=== PATIENT | male | born 2000 | race Hispanic/Latino ===

== ENCOUNTER 2022-01-23 04:29 | Inpatient (IN) | payer OTHER ==
[2022-01-23 05:07] LABS: INR-International Normal Ratio 1.2; PTT 28.8 sec (22.9-36.1); Prothrombin Time 15.1 sec (12.0-14.7)
[2022-01-23 05:12] LABS: ALT (SGPT) 407 U/L (8-55); AST (SGOT) 658 U/L (5-34); Albumin 4.4 g/dL (3.5-5.0); Alkaline Phosphatase 50 U/L (50-130); Anion Gap 24 mmol/L (10-20); BUN (Urea Nitrogen) 19 mg/dL (8.9-20.6); Bilirubin, Total 0.9 mg/dL (0.2-1.2); Calc. Creatinine Clearance 0 mL/min (70-130); Carbon Dioxide 18 mmol/L (22-29); Chloride 100 mmol/L (98-107); Estimated GFR 44; Globulin 3.1 g/dL (2.4-3.5); Glucose 298 mg/dL (70-105); Protein, Total 7.5 g/dL (6.0-8.3); Sodium 139 mmol/L (136-145)
[2022-01-23 05:23] LABS: Hemoglobin 14.6 g/dL (14.0-18.0); Mean Corpuscular HGB CONC 33.9 g/dL (32.0-36.0); Mean Corpuscular Hemoglobin 30.3 pg (25.0-35.0); Mean Corpuscular Volume 89.7 fL (78.0-98.0); Mean Platelet Volume 6.7 fL (7.4-10.4); Platelet Count 351 thou/uL (130-400); RBC Distribution Width 11.6 % (11.5-14.5); Red Blood Cell (RBC) Count 4.83 mill/uL (4.00-5.20); White Blood Cell (WBC) Count 25.4 thou/uL (4.8-10.8)
[2022-01-23] MEDS ORDERED: Fentanyl 100 MCG/2 ML VIAL ONE (05:32)
[2022-01-23 05:58] LABS: Band 24 % (5-11); Lymphocytes 14 % (28-48); MDiff Complete? YES; Monocytes 3 % (0-4); Neutrophil 59 % (31-61)
[2022-01-23] MEDS ORDERED: Morphine 4 MG/ML VIAL SLOW IVP PRN (05:58)
[2022-01-23] MEDS ORDERED: Dextrose 50% Abboject 50 ML SYRINGE SLOW IVP PRN ×2 (05:58→17:49)
[2022-01-23] MEDS ORDERED: Ondansetron PF 4 MG/2 ML Vial IVP PRN (05:58)
[2022-01-23] MEDS ORDERED: Dextrose 5% in Water 1,000 ML IV PRN (05:58)
[2022-01-23] MEDS ORDERED: Ondansetron ODT 4 MG TAB PO PRN (05:58)
[2022-01-23] MEDS ORDERED: Morphine 2 MG/ML VIAL SLOW IVP PRN (05:58)
[2022-01-23] MEDS ORDERED: Sodium Chloride 0.9% 1,000 ML IV SCH ×2 (06:00→22:30)
[2022-01-23] MEDS ORDERED: CEFAZOLIN 1 GM VIAL ONE (06:12)
[2022-01-23] MEDS ORDERED: Tranexamic Acid 1,000 MG/10 ML VIAL ONE (06:12)
[2022-01-23] MEDS ORDERED: Boostrix 0.5 ML (Tdap) VIAL ONE (06:12)
[2022-01-23] MEDS ORDERED: Ketamine 50 MG/ML (10ML VIAL) ONE (06:12)
[2022-01-23] MEDS ORDERED: Lidocaine 1% PF 5 ML VIAL ONE (06:19)
[2022-01-23 06:30] LABS: Bacteria/HPF None Seen HPF (None Seen); Bilirubin Negative (Negative); Blood, Urine 3+ (Negative); Clarity Turbid (Clear); Glucose, Urine (Dipstick) Normal (Negative); Ketone, Urine Negative (Negative); Leukocyte Negative Leu/uL (Negative); Nitrite Negative (Negative); Protein, Urine (Dipstick) 30 mg/dL (Neg-Trace); Specific Gravity, Urine 1.004 (1.002-1.036); Squamous Epithelial 0-3 HPF (0-3); Urobilinogen Normal mg/dL (Less than 2); pH, Urine 6.5 (5.0-9.0)
[2022-01-23] MEDS ORDERED: Ondansetron PF 4 MG/2 ML Vial ONE (06:55)
[2022-01-23] MEDS ORDERED: Calcium Chloride 1 GM/10 ML Abboject SYRINGE ONE ×2 (07:13→08:02)
[2022-01-23] MEDS ORDERED: Rocuronium Bromide 10 MG/ML (10ML VIAL) ONE ×3 (07:27→10:20)
[2022-01-23 07:43] LABS: CK (CPK) 1166 U/L (30-200); Magnesium 2.2 mg/dL (1.7-2.2); Phosphorus 7.5 mg/dL (2.3-4.7)
[2022-01-23] MEDS ORDERED: Midazolam HCl 2 mg/2 ml Vial ONE (07:43)
[2022-01-23] MEDS ORDERED: DISCONTINUE PREVIOUS NARCOTIC PAIN MEDICATIONS AND BENZODIAZEPINES FS SCH ×2 (07:45→08:30)
[2022-01-23] MEDS ORDERED: fentaNYL Citrate/PF 2,000 MCG in Sodium Chloride 0.9% 60 ML IV SCH ×2 (07:45→08:30)
[2022-01-23 07:56] LABS: Troponin I 0.919 ng/mL (< 0.028)
[2022-01-23 07:59] LABS: Actual Bicarbonate (HCO3a) 17.1 mEq/L (22-28); Analyzer IN Cardio ER; Base Excess (BEa) -7.9 mEq/L (-2.0 to +3.0); CO2 Tension 33.5 mmHg (35.0-45.0); Calcium, Ionized (arterial) 0.94 mmol/L (1.12-1.30); Carboxyhemoglobin (COHb) 0.3 gm% (0.0-3.0); Hemoglobin (Hb) 13.1 g/dL (11.4-15.4); O2 Tension (PaO2), arterial 420.9 mmHg (80.0-100.0); Potassium - ABG Lab 4.06 mmol/L (3.70-5.30); pH, Arterial 7.33 (7.35-7.45)
[2022-01-23] MEDS ORDERED: Ventilator Sedation Protocol 1 EACH FS SCH (08:00)
[2022-01-23 08:02] LABS: Puncture Site LBA
[2022-01-23 08:03] LABS: ALV-art Gradient -106.275 mmHg (0-20)
[2022-01-23] MEDS ORDERED: Potassium Chloride 20 MEQ/100 ML PREMIX BAG ONE (08:08)
[2022-01-23] MEDS ORDERED: Lidocaine 1% (PF) 30 ML VIAL ONE (08:09)
[2022-01-23] MEDS ORDERED: Propofol 1,000 MG/100 ML VIAL IV ONE (08:28)
[2022-01-23] MEDS ORDERED: Fentanyl BOLUS 250 ML IVPB PRN (08:30)
[2022-01-23] MEDS ORDERED: fentaNYL Citrate/PF 100 MCG/2 ML SYRINGE ONE ×2 (08:31→10:36)
[2022-01-23] MEDS ORDERED: Tranexamic Acid 1,000 MG in Sodium Chloride 0.9% 250 ML 250 ML IVPB SCH (09:00)
[2022-01-23] MEDS ORDERED: Phenylephrine 10 MG/ML VIAL ONE ×2 (09:01→10:20)
[2022-01-23 09:07] LABS: Amphetamine Not Detected (NotDetected); Barbiturates Screen Not Detected (NotDetected); Benzodiazepine Screen Not Detected (NotDetected); Cocaine Metabolite Screen Not Detected (NotDetected); Methadone Not Detected (NotDetected); Methamphetamine Not Detected (NotDetected); Opiate Screen Not Detected (NotDetected); Oxycodone Screen Not Detected (NotDetected); Phencyclidine (PCP) Not Detected (NotDetected); THC/Cannabinoid Screen Detected (NotDetected); Tricyclic Screen Not Detected (NotDetected)
[2022-01-23 09:24] LABS: Acetaminophen Less than 10.0 mcg/mL (10.0-30.0); Alcohol Less than 10 mg/dL (Less than 10); Salicylate Less than 8.0 mg/dL (15.0-30.0)
[2022-01-23] MEDS ORDERED: Esmolol 100 MG/10 ML VIAL ONE (10:20)
[2022-01-23] MEDS ORDERED: Vecuronium 10 MG VIAL ONE (10:20)
[2022-01-23] MEDS: Famotidine/PF 20 mg/2ml Vial SLOW IVP SCH ×2 (10:36→21:11)
[2022-01-23] MEDS ORDERED: HYDROmorphone 2 MG/ML VIAL ONE (11:18)
[2022-01-23] MEDS ORDERED: Iopamidol 370 76% 100 ML VIAL ONE ×2 (12:20→16:05)
[2022-01-23 15:07] LABS: Actual Bicarbonate (HCO3a) 20.6 mEq/L (22-28); Base Excess (BEa) -5.3 mEq/L (-2.0 to +3.0); Calcium, Ionized (arterial) 1.12 mmol/L (1.12-1.30); Hemoglobin (Hb) 11.5 g/dL (11.4-15.4); O2 Tension (PaO2), arterial 77.5 mmHg (80.0-100.0); Potassium - ABG Lab 6.24 mmol/L (3.70-5.30); pH, Arterial 7.31 (7.35-7.45)
[2022-01-23 15:09] LABS: Puncture Site RBA
[2022-01-23] MEDS: Propofol 1,000 MG/100 ML VIAL IV PRN ×2 (15:10→22:21)
[2022-01-23] MEDS ORDERED: Fentanyl CADD 100 ML ONE (15:25)
[2022-01-23 15:41] LABS: Lactic Acid 4.5 mmol/L (0.5-2.2)
[2022-01-23] MEDS ORDERED: Iopamidol 370 76% 50 ML VIAL FS ONE (16:05)
[2022-01-23 16:13] LABS: INR-International Normal Ratio 1.2; PTT 29.2 sec (22.9-36.1); Prothrombin Time 15.5 sec (12.0-14.7)
[2022-01-23 16:15] LABS: #Lymphocytes 1.4 thou/uL (1.20-3.40); #Monocytes 0.9 thou/uL (0.11-0.59); #Neutrophils 7.3 thou/uL (1.40-6.50); %Basophils 0.1 % (0.0-1.0); %Eosinophils 0.4 % (0.0-10.0); %Lymphocytes 14.6 % (28.0-48.0); %Monocytes 8.9 % (0.0-4.0); %Neutrophils 76.1 % (31.0-61.0); Hemoglobin 11.8 g/dL (14.0-18.0); Mean Corpuscular HGB CONC 34.5 g/dL (32.0-36.0); Mean Corpuscular Hemoglobin 30.6 pg (25.0-35.0); Mean Corpuscular Volume 88.9 fL (78.0-98.0); Mean Platelet Volume 6.6 fL (7.4-10.4); Platelet Count 202 thou/uL (130-400); RBC Distribution Width 12.3 % (11.5-14.5); Red Blood Cell (RBC) Count 3.86 mill/uL (4.00-5.20); White Blood Cell (WBC) Count 9.6 thou/uL (4.8-10.8)
[2022-01-23] MEDS: Sodium Chloride 0.9% 1,000 ML IV SCH ×3 (16:16→22:41)
[2022-01-23 16:30] LABS: Anion Gap 16 mmol/L (10-20); BUN (Urea Nitrogen) 21 mg/dL (8.9-20.6); Calc. Creatinine Clearance 90 mL/min (70-130); Calcium 8.4 mg/dL (7.8-10.44); Carbon Dioxide 21 mmol/L (22-29); Chloride 107 mmol/L (98-107); Estimated GFR 68; Glucose 125 mg/dL (70-105); Lactic Acid 4.4 mmol/L (0.5-2.2); Magnesium 1.7 mg/dL (1.7-2.2); Phosphorus 4.2 mg/dL (2.3-4.7); Potassium 6.4 mmol/L (3.5-5.1); Sodium 138 mmol/L (136-145); Troponin I 2.165 ng/mL (< 0.028)
[2022-01-23] MEDS ORDERED: Magnesium 2 GM/50 ML(in water) 2 GM in Premix Bag 1 BAG IVPB SCH (16:45)
[2022-01-23] MEDS ORDERED: Insulin Regular 300 UNITS/3 ML VIAL SC PRN (17:54)
[2022-01-23] MEDS ORDERED: Insulin Regular 300 UNITS/3 ML VIAL IVP SCH (18:00)
[2022-01-23] MEDS ORDERED: Calcium Gluconate 4.6 MEQ in Sodium Chloride 0.9% 100 ML IVPB SCH (18:00)
[2022-01-23] MEDS ORDERED: CALCIUM GLUC 1GM/NS 50ML 1 GM in Premix Bag 1 BAG IVPB SCH (18:15)
[2022-01-23] MEDS: Ampicillin/Sulbactam 3 GM in Sodium Chloride 0.9% 100 ML IVPB SCH (21:37)
[2022-01-23] MEDS ORDERED: Chlorhexidine Gluconate 15 ML UDCUP SSP SCH (21:45)
[2022-01-23] MEDS ORDERED: ceFAZolin 2 GM/Dextrose 50 ML 2 GM in Premix Bag 1 BAG IVPB SCH (22:00)
[2022-01-23] MEDS: CEFAZOLIN 2 GM in Sodium Chloride 0.9% 100 ML IVPB SCH (23:00)
[2022-01-23 23:01] LABS: Potassium 4.5 mmol/L (3.5-5.1)
[2022-01-23 23:14] LABS: Critical Call Chem Troponin I RESULT DECREASING; Troponin I 1.403 ng/mL (< 0.028)
[2022-01-24] MEDS ORDERED: Fentanyl CADD 0 ML ONE (03:26)
[2022-01-24] MEDS: Fentanyl CADD 100 ML IV SCH ×2 (03:39→13:36)
[2022-01-24] MEDS: Ampicillin/Sulbactam 3 GM in Sodium Chloride 0.9% 100 ML IVPB SCH ×4 (03:44→21:21)
[2022-01-24] MEDS: Propofol 1,000 MG/100 ML VIAL IV PRN ×2 (03:47→23:03)
[2022-01-24 04:07] LABS: #Lymphocytes 1.1 thou/uL (1.20-3.40); #Monocytes 0.7 thou/uL (0.11-0.59); #Neutrophils 6.7 thou/uL (1.40-6.50); %Basophils 0.1 % (0.0-1.0); %Eosinophils 0.2 % (0.0-10.0); %Lymphocytes 12.4 % (28.0-48.0); %Neutrophils 79.2 % (31.0-61.0); Hemoglobin 9.9 g/dL (14.0-18.0); Mean Corpuscular HGB CONC 35.4 g/dL (32.0-36.0); Mean Corpuscular Hemoglobin 31.4 pg (25.0-35.0); Mean Corpuscular Volume 88.5 fL (78.0-98.0); Mean Platelet Volume 6.3 fL (7.4-10.4); Platelet Count 136 thou/uL (130-400); RBC Distribution Width 12.3 % (11.5-14.5); Red Blood Cell (RBC) Count 3.15 mill/uL (4.00-5.20); White Blood Cell (WBC) Count 8.5 thou/uL (4.8-10.8)
[2022-01-24 04:42] LABS: Critical Call Chem Troponin I RESULT DECREASING; Troponin I 1.038 ng/mL (< 0.028)
[2022-01-24 04:56] LABS: CK (CPK) 9440 U/L (30-200)
[2022-01-24 04:59] LABS: ALT (SGPT) 124 U/L (8-55); AST (SGOT) 233 U/L (5-34); Alkaline Phosphatase 41 U/L (50-130); Anion Gap 12 mmol/L (10-20); BUN (Urea Nitrogen) 20 mg/dL (8.9-20.6); Bilirubin, Total 0.8 mg/dL (0.2-1.2); Calc. Creatinine Clearance 109 mL/min (70-130); Calcium 7.9 mg/dL (7.8-10.44); Carbon Dioxide 22 mmol/L (22-29); Chloride 109 mmol/L (98-107); Estimated GFR 85; Globulin 2.2 g/dL (2.4-3.5); Glucose 119 mg/dL (70-105); Magnesium 1.9 mg/dL (1.7-2.2); Phosphorus 3.2 mg/dL (2.3-4.7); Potassium 5.1 mmol/L (3.5-5.1); Protein, Total 5.2 g/dL (6.0-8.3); Sodium 138 mmol/L (136-145)
[2022-01-24] MEDS: CEFAZOLIN 2 GM in Sodium Chloride 0.9% 100 ML IVPB SCH (06:09)
[2022-01-24] MEDS: Sodium Chloride 0.9% 1,000 ML IV SCH ×3 (06:16→21:34)
[2022-01-24 07:15] LABS: SARS-CoV-2 NAA Rapid Test Not Detected (NotDetected)
[2022-01-24 07:18] LABS: Actual Bicarbonate (HCO3a) 20.1 mEq/L (22-28); Base Excess (BEa) -3.7 mEq/L (-2.0 to +3.0); CO2 Tension 31.8 mmHg (35.0-45.0); Calcium, Ionized (arterial) 1.04 mmol/L (1.12-1.30); Carboxyhemoglobin (COHb) 0.3 gm% (0.0-3.0); Hemoglobin (Hb) 10.7 g/dL (11.4-15.4); O2 Tension (PaO2), arterial 177.2 mmHg (80.0-100.0); Potassium - ABG Lab 4.09 mmol/L (3.70-5.30); pH, Arterial 7.42 (7.35-7.45)
[2022-01-24] MEDS ORDERED: Sodium Phosphate 15 MMOL in Sodium Chloride 0.9% 250 ML 250 ML IVPB SCH (07:30)
[2022-01-24] MEDS ORDERED: Midazolam HCl 2 mg/2 ml Vial SLOW IVP PRN (07:33)
[2022-01-24] MEDS ORDERED: Midazolam HCl 5 mg/5 ml Vial SLOW IVP PRN (07:33)
[2022-01-24] MEDS ORDERED: Fentanyl 100 MCG/2 ML VIAL SLOW IVP PRN ×2 (07:34)
[2022-01-24] MEDS: Propofol BOLUS 1,000 MG/100 ML VIAL IV PRN ×3 (07:44→13:36)
[2022-01-24] MEDS ORDERED: Vecuronium 10 MG VIAL IVP SCH (07:45)
[2022-01-24] MEDS ORDERED: Lidocaine 1% w/Epinephrine 1:200K 30 ML VIAL FS SCH (07:45)
[2022-01-24 07:52] LABS: Puncture Site RBA
[2022-01-24] MEDS ORDERED: Calcium Chloride 13.6 MEQ in Sodium Chloride 0.9% 100 ML IVPB SCH (08:15)
[2022-01-24] MEDS: Chlorhexidine Gluconate 15 ML UDCUP SSP SCH ×3 (09:08→21:23)
[2022-01-24] MEDS: Famotidine/PF 20 mg/2ml Vial SLOW IVP SCH ×2 (09:09→21:23)
[2022-01-24] MEDS ORDERED: CEFAZOLIN 2 GM in Sodium Chloride 0.9% 100 ML IVPB SCH (09:45)
[2022-01-24] MEDS ORDERED: Lidocaine 1% w/Epinephrine 1:100K 20 ML VIAL FS SCH (09:45)
[2022-01-24] MEDS: Dexamethasone 4 mg/ml Vial SLOW IVP SCH ×3 (12:33→23:06)
[2022-01-24] MEDS ORDERED: Fentanyl CADD 100 ML ONE (13:35)
[2022-01-24] MEDS ORDERED: Bacitracin Zinc Ointment 30 gm TUBE ONE (17:01)
[2022-01-24] MEDS ORDERED: Xylocaine 1% w/ Epi 1:100K 10 ML VIAL ONE (17:01)
[2022-01-24] MEDS ORDERED: Midazolam HCl 5 mg/5 ml Vial ONE (17:02)
[2022-01-24] MEDS ORDERED: fentaNYL Citrate/PF 100 MCG/2 ML SYRINGE ONE (17:03)
[2022-01-24] MEDS ORDERED: Vecuronium 10 MG VIAL ONE (17:39)
[2022-01-24] MEDS ORDERED: Rocuronium Bromide 10 MG/ML (10ML VIAL) ONE (17:39)
[2022-01-24] MEDS ORDERED: Chlorhexidine Gluconate 15 ML UDCUP SSP ONE (17:48)
[2022-01-24 20:26] LABS: #Lymphocytes 0.4 thou/uL (1.20-3.40); #Monocytes 0.4 thou/uL (0.11-0.59); #Neutrophils 6.9 thou/uL (1.40-6.50); %Eosinophils 0.1 % (0.0-10.0); %Lymphocytes 5.6 % (28.0-48.0); %Neutrophils 89.3 % (31.0-61.0); Hemoglobin 8.6 g/dL (14.0-18.0); Mean Corpuscular HGB CONC 34.1 g/dL (32.0-36.0); Mean Corpuscular Hemoglobin 30.7 pg (25.0-35.0); Mean Corpuscular Volume 90.1 fL (78.0-98.0); Mean Platelet Volume 6.9 fL (7.4-10.4); Platelet Count 123 thou/uL (130-400); RBC Distribution Width 12.4 % (11.5-14.5); White Blood Cell (WBC) Count 7.7 thou/uL (4.8-10.8)
[2022-01-24 20:43] LABS: Anion Gap 11 mmol/L (10-20); BUN (Urea Nitrogen) 14 mg/dL (8.9-20.6); Calc. Creatinine Clearance 131 mL/min (70-130); Calcium 8.3 mg/dL (7.8-10.44); Carbon Dioxide 25 mmol/L (22-29); Chloride 110 mmol/L (98-107); Estimated GFR 103; Glucose 141 mg/dL (70-105); Potassium 4.7 mmol/L (3.5-5.1); Sodium 141 mmol/L (136-145)
[2022-01-24] MEDS ORDERED: hydrALAZINE 20 MG/ML VIAL SLOW IVP PRN (20:45)
[2022-01-24 20:47] LABS: Magnesium 2.1 mg/dL (1.7-2.2)
[2022-01-25] MEDS: Ampicillin/Sulbactam 3 GM in Sodium Chloride 0.9% 100 ML IVPB SCH ×4 (02:14→22:04)
[2022-01-25] MEDS: Propofol 1,000 MG/100 ML VIAL IV PRN ×4 (02:50→13:33)
[2022-01-25] MEDS ORDERED: Fentanyl CADD 100 ML ONE ×2 (03:09→12:21)
[2022-01-25] MEDS: Fentanyl CADD 100 ML IV SCH ×3 (03:12→21:37)
[2022-01-25 04:04] LABS: #Lymphocytes 0.3 thou/uL (1.20-3.40); #Monocytes 0.4 thou/uL (0.11-0.59); #Neutrophils 6.9 thou/uL (1.40-6.50); %Basophils 0.1 % (0.0-1.0); %Eosinophils 0.1 % (0.0-10.0); %Lymphocytes 4.1 % (28.0-48.0); %Monocytes 5.5 % (0.0-4.0); %Neutrophils 90.2 % (31.0-61.0); Hemoglobin 7.3 g/dL (14.0-18.0); Mean Corpuscular Hemoglobin 31.4 pg (25.0-35.0); Mean Corpuscular Volume 89.7 fL (78.0-98.0); Mean Platelet Volume 7.2 fL (7.4-10.4); Platelet Count 122 thou/uL (130-400); RBC Distribution Width 12.3 % (11.5-14.5); Red Blood Cell (RBC) Count 2.32 mill/uL (4.00-5.20); White Blood Cell (WBC) Count 7.6 thou/uL (4.8-10.8)
[2022-01-25 04:39] LABS: ALT (SGPT) 81 U/L (8-55); AST (SGOT) 187 U/L (5-34); Albumin 2.7 g/dL (3.5-5.0); Alkaline Phosphatase 46 U/L (50-130); Anion Gap 10 mmol/L (10-20); BUN (Urea Nitrogen) 12 mg/dL (8.9-20.6); Bilirubin, Total 0.5 mg/dL (0.2-1.2); Calc. Creatinine Clearance 143 mL/min (70-130); Carbon Dioxide 25 mmol/L (22-29); Chloride 110 mmol/L (98-107); Estimated GFR 115; Globulin 2.4 g/dL (2.4-3.5); Glucose 136 mg/dL (70-105); Magnesium 2.1 mg/dL (1.7-2.2); Phosphorus 2.4 mg/dL (2.3-4.7); Potassium 4.4 mmol/L (3.5-5.1); Protein, Total 5.1 g/dL (6.0-8.3); Sodium 141 mmol/L (136-145)
[2022-01-25 05:06] LABS: CK (CPK) 8145 U/L (30-200)
[2022-01-25] MEDS: Sodium Chloride 0.9% 1,000 ML IV SCH ×4 (05:52→20:06)
[2022-01-25] MEDS: Dexamethasone 4 mg/ml Vial SLOW IVP SCH (06:30)
[2022-01-25] MEDS: Chlorhexidine Gluconate 15 ML UDCUP SSP SCH ×3 (08:04→22:04)
[2022-01-25] MEDS: Famotidine/PF 20 mg/2ml Vial SLOW IVP SCH ×2 (08:18→22:04)
[2022-01-25] MEDS: Ascorbic Acid 500 mg Chewable Tablet PO SCH (08:19)
[2022-01-25] MEDS: Ferrous Sulfate 325 MG TAB PO SCH (08:19)
[2022-01-25] MEDS ORDERED: Midazolam HCl 2 mg/2 ml Vial ONE (09:44)
[2022-01-25] MEDS ORDERED: Midazolam HCl 2 mg/2 ml Vial SLOW IVP SCH (10:00)
[2022-01-25 17:40] LABS: #Lymphocytes 0.6 thou/uL (1.20-3.40); #Monocytes 0.4 thou/uL (0.11-0.59); %Basophils 0.1 % (0.0-1.0); %Eosinophils 0.1 % (0.0-10.0); %Lymphocytes 9.3 % (28.0-48.0); %Monocytes 6.8 % (0.0-4.0); %Neutrophils 83.8 % (31.0-61.0); Hemoglobin 5.8 g/dL (14.0-18.0); Mean Corpuscular HGB CONC 34.9 g/dL (32.0-36.0); Mean Corpuscular Hemoglobin 31.6 pg (25.0-35.0); Mean Corpuscular Volume 90.5 fL (78.0-98.0); Mean Platelet Volume 6.7 fL (7.4-10.4); Platelet Count 100 thou/uL (130-400); RBC Distribution Width 12.1 % (11.5-14.5); Red Blood Cell (RBC) Count 1.85 mill/uL (4.00-5.20); White Blood Cell (WBC) Count 5.9 thou/uL (4.8-10.8)
[2022-01-25] MEDS: Midazolam HCl 2 mg/2 ml Vial SLOW IVP PRN ×2 (19:27→23:28)
[2022-01-25] MEDS ORDERED: Sodium Chloride 0.9% 500 ML IV SCH (19:30)
[2022-01-25 21:36] LABS: #Lymphocytes 0.6 thou/uL (1.20-3.40); #Monocytes 0.5 thou/uL (0.11-0.59); #Neutrophils 6.1 thou/uL (1.40-6.50); %Basophils 0.1 % (0.0-1.0); %Eosinophils 0.3 % (0.0-10.0); %Lymphocytes 8.6 % (28.0-48.0); %Monocytes 6.6 % (0.0-4.0); %Neutrophils 84.5 % (31.0-61.0); Hemoglobin 6.7 g/dL (14.0-18.0); Mean Corpuscular HGB CONC 34.5 g/dL (32.0-36.0); Mean Corpuscular Volume 89.8 fL (78.0-98.0); Mean Platelet Volume 6.4 fL (7.4-10.4); Platelet Count 100 thou/uL (130-400); RBC Distribution Width 12.2 % (11.5-14.5); Red Blood Cell (RBC) Count 2.15 mill/uL (4.00-5.20); White Blood Cell (WBC) Count 7.2 thou/uL (4.8-10.8)
[2022-01-25] MEDS: Melatonin 3 MG TAB PO SCH (22:07)
[2022-01-26] MEDS: Ampicillin/Sulbactam 3 GM in Sodium Chloride 0.9% 100 ML IVPB SCH ×4 (02:07→21:25)
[2022-01-26] MEDS: Sodium Chloride 0.9% 1,000 ML IV SCH (02:07)
[2022-01-26 06:39] LABS: BUN (Urea Nitrogen) 14 mg/dL (8.9-20.6); Calc. Creatinine Clearance 187 mL/min (70-130); Carbon Dioxide 22 mmol/L (22-29); Chloride 112 mmol/L (98-107); Estimated GFR 132; Glucose 117 mg/dL (70-105); Magnesium 2.2 mg/dL (1.7-2.2); Phosphorus 1.6 mg/dL (2.3-4.7); Potassium 3.8 mmol/L (3.5-5.1); Sodium 140 mmol/L (136-145)
[2022-01-26 06:40] LABS: Anion Gap 10 mmol/L (10-20); Calcium 8.1 mg/dL (7.8-10.44)
[2022-01-26 06:42] LABS: CK (CPK) 8038 U/L (30-200)
[2022-01-26 06:57] LABS: #Lymphocytes 0.8 thou/uL (1.20-3.40); #Monocytes 0.4 thou/uL (0.11-0.59); #Neutrophils 5.1 thou/uL (1.40-6.50); %Basophils 0.1 % (0.0-1.0); %Eosinophils 0.5 % (0.0-10.0); %Lymphocytes 12.2 % (28.0-48.0); %Monocytes 5.7 % (0.0-4.0); %Neutrophils 81.6 % (31.0-61.0); Mean Corpuscular HGB CONC 33.9 g/dL (32.0-36.0); Mean Corpuscular Hemoglobin 30.5 pg (25.0-35.0); Mean Corpuscular Volume 90.1 fL (78.0-98.0); Platelet Count 116 thou/uL (130-400); RBC Distribution Width 12.7 % (11.5-14.5); Red Blood Cell (RBC) Count 2.62 mill/uL (4.00-5.20); White Blood Cell (WBC) Count 6.2 thou/uL (4.8-10.8)
[2022-01-26] MEDS: Midazolam HCl 2 mg/2 ml Vial SLOW IVP PRN (07:38)
[2022-01-26] MEDS ORDERED: Furosemide 20 MG/2 ML VIAL SLOW IVP SCH (08:15)
[2022-01-26] MEDS ORDERED: Ascorbic Acid 500 mg Chewable Tablet PER TUBE SCH (09:00)
[2022-01-26] MEDS ORDERED: Potassium Phosphate 30 MMOL in Sodium Chloride 0.9% 250 ML 250 ML IVPB SCH (09:00)
[2022-01-26] MEDS ORDERED: carBAMazepine 200 MG TAB PO SCH (09:00)
[2022-01-26] MEDS ORDERED: Lidocaine 1% (PF) 30 ML VIAL ONE ×2 (09:57→16:32)
[2022-01-26] MEDS: Ascorbic Acid 500 mg Chewable Tablet PO SCH (09:59)
[2022-01-26] MEDS: Ferrous Sulfate 325 MG TAB PO SCH (09:59)
[2022-01-26] MEDS: Famotidine/PF 20 mg/2ml Vial SLOW IVP SCH ×2 (09:59→21:25)
[2022-01-26 11:03] LABS: Actual Bicarbonate (HCO3v) 24 mEq/L (22-28); Analyzer IN Cardio OR; Base Excess -4.3 mEq/L (-2.0 to +3.0); Chloride (VBG) 107 mmol/L (98-106); Potassium (VBG) 5.18 mmol/L (3.70-5.30)
[2022-01-26 11:05] LABS: pH (venous) 7.24 (7.32-7.43)
[2022-01-26] MEDS: carBAMazepine SR 300 mg Capsule PO SCH ×3 (11:21→21:53)
[2022-01-26] MEDS: Chlorhexidine Gluconate 15 ML UDCUP SSP SCH ×4 (11:24→21:25)
[2022-01-26] MEDS: Dexmedetomidine 1,000 MCG in Sodium Chloride 0.9% 250 ML 240 ML IVPB SCH (15:08)
[2022-01-26] MEDS ORDERED: Midazolam HCl 2 mg/2 ml Vial ONE (16:19)
[2022-01-26] MEDS ORDERED: fentaNYL Citrate/PF 100 MCG/2 ML SYRINGE ONE ×3 (16:20→18:57)
[2022-01-26] MEDS ORDERED: Dexmedetomidine 200 MCG/2 ML VIAL ONE (16:20)
[2022-01-26] MEDS ORDERED: Chlorhexidine Gluconate 15 ML UDCUP SSP ONE (16:32)
[2022-01-26] MEDS ORDERED: Bacitracin Zinc Ointment 30 gm TUBE ONE (16:32)
[2022-01-26] MEDS ORDERED: Lidocaine 1% w/Epinephrine 1:200K 30 ML VIAL ONE (16:33)
[2022-01-26] MEDS ORDERED: Rocuronium Bromide 10 MG/ML (10ML VIAL) ONE (17:15)
[2022-01-26] MEDS ORDERED: PROPOFOL 200 MG/20 ML VIAL ONE (17:15)
[2022-01-26] MEDS ORDERED: Dexamethasone 20 MG/5 ML VIAL ONE (17:15)
[2022-01-26] MEDS ORDERED: Oxymetazoline HCl 0.05% (30 ML BOT) ONE ×2 (17:54→20:35)
[2022-01-26] MEDS: Pregabalin 50 MG CAP PO SCH ×2 (21:29→21:30)
[2022-01-26] MEDS: Melatonin 3 MG TAB PO SCH (21:39)
[2022-01-26] MEDS: Fentanyl CADD 100 ML IV SCH (21:41)
[2022-01-26] MEDS: Acetaminophen 500 MG TAB PO SCH (22:51)
[2022-01-26 23:00] LABS: Hemoglobin 7.8 g/dL (14.0-18.0)
[2022-01-27] MEDS: Midazolam HCl 2 mg/2 ml Vial SLOW IVP PRN (02:36)
[2022-01-27] MEDS: Ampicillin/Sulbactam 3 GM in Sodium Chloride 0.9% 100 ML IVPB SCH ×4 (02:36→20:54)
[2022-01-27] MEDS: Dexmedetomidine 1,000 MCG in Sodium Chloride 0.9% 250 ML 240 ML IVPB SCH ×2 (03:20→15:16)
[2022-01-27 04:20] LABS: #Lymphocytes 0.5 thou/uL (1.20-3.40); #Monocytes 0.7 thou/uL (0.11-0.59); #Neutrophils 5.7 thou/uL (1.40-6.50); %Basophils 0.2 % (0.0-1.0); %Eosinophils 0.2 % (0.0-10.0); %Lymphocytes 7.3 % (28.0-48.0); %Neutrophils 82.2 % (31.0-61.0); Mean Corpuscular HGB CONC 34.1 g/dL (32.0-36.0); Mean Corpuscular Volume 88.1 fL (78.0-98.0); Mean Platelet Volume 6.3 fL (7.4-10.4); Platelet Count 166 thou/uL (130-400); RBC Distribution Width 12.6 % (11.5-14.5); Red Blood Cell (RBC) Count 2.65 mill/uL (4.00-5.20); White Blood Cell (WBC) Count 6.9 thou/uL (4.8-10.8)
[2022-01-27 04:57] LABS: CK (CPK) 7059 U/L (30-200)
[2022-01-27 04:59] LABS: Anion Gap 14 mmol/L (10-20); BUN (Urea Nitrogen) 17 mg/dL (8.9-20.6); Calc. Creatinine Clearance 177 mL/min (70-130); Calcium 8.2 mg/dL (7.8-10.44); Carbon Dioxide 23 mmol/L (22-29); Chloride 107 mmol/L (98-107); Estimated GFR 130; Glucose 126 mg/dL (70-105); Magnesium 1.9 mg/dL (1.7-2.2); Potassium 4.2 mmol/L (3.5-5.1); Sodium 140 mmol/L (136-145)
[2022-01-27] MEDS: Acetaminophen 500 MG TAB PO SCH ×4 (05:20→23:41)
[2022-01-27] MEDS: Fentanyl CADD 100 ML IV SCH (06:48)
[2022-01-27] MEDS ORDERED: traMADol HCl 50 MG TAB PO PRN ×2 (07:13→07:15)
[2022-01-27] MEDS: Famotidine/PF 20 mg/2ml Vial SLOW IVP SCH ×2 (08:40→20:57)
[2022-01-27] MEDS: Ferrous Sulfate 325 MG TAB PO SCH (08:40)
[2022-01-27] MEDS: Pregabalin 50 MG CAP PO SCH ×2 (08:40→20:58)
[2022-01-27] MEDS: Chlorhexidine Gluconate 15 ML UDCUP SSP SCH ×2 (08:40→20:56)
[2022-01-27] MEDS: Ascorbic Acid 500 mg Chewable Tablet PO SCH (08:40)
[2022-01-27] MEDS ORDERED: carBAMazepine SR 300 mg Capsule PO SCH (08:42)
[2022-01-27] MEDS: carBAMazepine SR 300 mg Capsule PO SCH ×4 (08:49→20:56)
[2022-01-27] MEDS: Sodium Chloride 0.9% 1,000 ML IV SCH (10:51)
[2022-01-27] MEDS: traMADol HCl 50 MG TAB PO SCH ×3 (12:14→23:42)
[2022-01-27] MEDS: Oxymetazoline HCl 0.05% (30 ML BOT) NS SCH ×2 (16:14→20:58)
[2022-01-27] MEDS ORDERED: Dexamethasone 1 MG TAB ONE (16:15)
[2022-01-27] MEDS ORDERED: Dexamethasone 4 mg/ml Vial ONE (16:16)
[2022-01-27] MEDS: Dexamethasone 4 mg/ml Vial SLOW IVP SCH ×2 (16:18→20:56)
[2022-01-27] MEDS: clonazePAM 1 MG TAB PO SCH (20:56)
[2022-01-27] MEDS: Melatonin 3 MG TAB PO SCH (20:57)
[2022-01-28] MEDS: Dexamethasone 4 mg/ml Vial SLOW IVP SCH ×2 (03:35→11:38)
[2022-01-28] MEDS: Ampicillin/Sulbactam 3 GM in Sodium Chloride 0.9% 100 ML IVPB SCH (03:35)
[2022-01-28] MEDS: Acetaminophen 500 MG TAB PO SCH ×4 (05:33→23:23)
[2022-01-28] MEDS: traMADol HCl 50 MG TAB PO SCH ×4 (05:34→23:21)
[2022-01-28 08:17] LABS: #Lymphocytes 0.5 thou/uL (1.20-3.40); #Monocytes 0.5 thou/uL (0.11-0.59); #Neutrophils 6.5 thou/uL (1.40-6.50); %Basophils 0.3 % (0.0-1.0); %Eosinophils 0.3 % (0.0-10.0); %Lymphocytes 6.6 % (28.0-48.0); %Monocytes 7.2 % (0.0-4.0); %Neutrophils 85.6 % (31.0-61.0); Hemoglobin 9.1 g/dL (14.0-18.0); Mean Corpuscular HGB CONC 33.8 g/dL (32.0-36.0); Mean Corpuscular Hemoglobin 30.5 pg (25.0-35.0); Mean Corpuscular Volume 90.2 fL (78.0-98.0); Platelet Count 239 thou/uL (130-400); RBC Distribution Width 12.6 % (11.5-14.5); Red Blood Cell (RBC) Count 2.98 mill/uL (4.00-5.20); White Blood Cell (WBC) Count 7.6 thou/uL (4.8-10.8)
[2022-01-28 08:48] LABS: Anion Gap 13 mmol/L (10-20); BUN (Urea Nitrogen) 18 mg/dL (8.9-20.6); Calc. Creatinine Clearance 201 mL/min (70-130); Calcium 8.7 mg/dL (7.8-10.44); Carbon Dioxide 24 mmol/L (22-29); Chloride 104 mmol/L (98-107); Estimated GFR 136; Glucose 155 mg/dL (70-105); Magnesium 2.1 mg/dL (1.7-2.2); Phosphorus 2.6 mg/dL (2.3-4.7); Potassium 4.2 mmol/L (3.5-5.1); Sodium 137 mmol/L (136-145)
[2022-01-28] MEDS ORDERED: Furosemide 20 MG/2 ML VIAL SLOW IVP SCH (09:15)
[2022-01-28] MEDS ORDERED: Enoxaparin Sodium 40 MG/0.4 ML SYRINGE SC SCH (09:37)
[2022-01-28] MEDS ORDERED: Ferrous Sulfate 325 MG TAB ONE (10:57)
[2022-01-28] MEDS ORDERED: Ascorbic Acid 500 mg Chewable Tablet ONE (10:57)
[2022-01-28] MEDS ORDERED: Dexamethasone 4 mg/ml Vial ONE (10:58)
[2022-01-28] MEDS ORDERED: carBAMazepine 200 MG TAB ONE (11:21)
[2022-01-28] MEDS ORDERED: Polyethylene Glycol 3350 17 GM Packet ONE (11:23)
[2022-01-28] MEDS ORDERED: Pregabalin 50 MG CAP ONE (11:23)
[2022-01-28] MEDS: Ascorbic Acid 500 mg Chewable Tablet PO SCH (11:30)
[2022-01-28] MEDS: Polyethylene Glycol 3350 17 GM Packet PER TUBE SCH (11:30)
[2022-01-28] MEDS: Ferrous Sulfate 325 MG TAB PO SCH (11:32)
[2022-01-28] MEDS: Amoxicillin/Potassium Clav 875 MG TAB PO SCH ×2 (11:34→20:48)
[2022-01-28] MEDS: Chlorhexidine Gluconate 15 ML UDCUP SSP SCH ×2 (11:36→20:50)
[2022-01-28] MEDS: Citalopram 20 MG TAB PO SCH (11:36)
[2022-01-28] MEDS: Famotidine/PF 20 mg/2ml Vial SLOW IVP SCH ×2 (11:38→20:50)
[2022-01-28] MEDS: Pregabalin 50 MG CAP PO SCH ×2 (11:42→20:49)
[2022-01-28] MEDS: Oxymetazoline HCl 0.05% (30 ML BOT) NS SCH ×2 (11:45→20:57)
[2022-01-28] MEDS ORDERED: clonazePAM 0.5 MG TAB ONE (11:49)
[2022-01-28] MEDS: carBAMazepine SR 300 mg Capsule PO SCH ×3 (11:52→20:48)
[2022-01-28] MEDS ORDERED: clonazePAM 0.5 MG TAB PO SCH (12:15)
[2022-01-28] MEDS: clonazePAM 1 MG TAB PO SCH ×2 (12:25→20:48)
[2022-01-28] MEDS: Melatonin 3 MG TAB PO SCH (20:48)
[2022-01-28] MEDS: Sodium Chloride 0.9% 1,000 ML IV SCH (21:28)
[2022-01-28] MEDS: Bacitracin-Polymyxin B Opth Oint 3.5 GM TUBE EA EYE SCH (23:21)
[2022-01-28] MEDS: Morphine 2 MG/ML VIAL SLOW IVP PRN (23:36)
[2022-01-29 03:53] LABS: #Eosinphils 0.1 thou/uL (0.0-0.7); #Lymphocytes 1.5 thou/uL (1.20-3.40); #Neutrophils 6.2 thou/uL (1.40-6.50); %Basophils 0.1 % (0.0-1.0); %Eosinophils 0.7 % (0.0-10.0); %Lymphocytes 16.8 % (28.0-48.0); %Monocytes 11.1 % (0.0-4.0); %Neutrophils 71.3 % (31.0-61.0); Hemoglobin 9.5 g/dL (14.0-18.0); Mean Corpuscular HGB CONC 33.9 g/dL (32.0-36.0); Mean Corpuscular Hemoglobin 30.7 pg (25.0-35.0); Mean Corpuscular Volume 90.6 fL (78.0-98.0); Mean Platelet Volume 6.1 fL (7.4-10.4); Platelet Count 309 thou/uL (130-400); RBC Distribution Width 12.8 % (11.5-14.5); Red Blood Cell (RBC) Count 3.09 mill/uL (4.00-5.20); White Blood Cell (WBC) Count 8.7 thou/uL (4.8-10.8)
[2022-01-29 04:13] LABS: Anion Gap 10 mmol/L (10-20); BUN (Urea Nitrogen) 20 mg/dL (8.9-20.6); CK (CPK) 2729 U/L (30-200); Calc. Creatinine Clearance 193 mL/min (70-130); Calcium 8.5 mg/dL (7.8-10.44); Carbon Dioxide 28 mmol/L (22-29); Chloride 104 mmol/L (98-107); Estimated GFR 134; Glucose 116 mg/dL (70-105); Magnesium 1.7 mg/dL (1.7-2.2); Phosphorus 2.9 mg/dL (2.3-4.7); Potassium 3.5 mmol/L (3.5-5.1); Sodium 138 mmol/L (136-145)
[2022-01-29] MEDS: traMADol HCl 50 MG TAB PO SCH ×5 (05:21→23:38)
[2022-01-29] MEDS: Acetaminophen 500 MG TAB PO SCH ×4 (05:22→23:34)
[2022-01-29] MEDS: Morphine 2 MG/ML VIAL SLOW IVP PRN ×2 (06:36→08:53)
[2022-01-29] MEDS: Enoxaparin Sodium 40 MG/0.4 ML SYRINGE SC SCH (08:47)
[2022-01-29] MEDS: Oxymetazoline HCl 0.05% (30 ML BOT) NS SCH ×2 (08:47→20:43)
[2022-01-29] MEDS: carBAMazepine SR 300 mg Capsule PO SCH (08:51)
[2022-01-29] MEDS: Ascorbic Acid 500 mg Chewable Tablet PO SCH (08:51)
[2022-01-29] MEDS: Famotidine/PF 20 mg/2ml Vial SLOW IVP SCH ×2 (08:51→20:40)
[2022-01-29] MEDS: Pregabalin 50 MG CAP PO SCH ×2 (08:51→20:55)
[2022-01-29] MEDS: Chlorhexidine Gluconate 15 ML UDCUP SSP SCH ×2 (08:51→20:44)
[2022-01-29] MEDS: Ferrous Sulfate 325 MG TAB PO SCH (08:52)
[2022-01-29] MEDS: Amoxicillin/Potassium Clav 875 MG TAB PO SCH ×2 (08:52→20:54)
[2022-01-29] MEDS: clonazePAM 1 MG TAB PO SCH ×2 (08:52→20:57)
[2022-01-29] MEDS: Citalopram 20 MG TAB PO SCH (08:52)
[2022-01-29] MEDS: cloNIDine 0.2 MG TAB PO SCH ×3 (10:53→20:57)
[2022-01-29] MEDS: Bacitracin-Polymyxin B Opth Oint 3.5 GM TUBE EA EYE SCH ×2 (12:24→21:44)
[2022-01-29] MEDS: Polyethylene Glycol 3350 17 GM Packet PER TUBE SCH (12:25)
[2022-01-29] MEDS ORDERED: carBAMazepine SR 300 mg Capsule PO SCH (12:48)
[2022-01-29] MEDS: carBAMazepine 200 MG TAB PO SCH (20:54)
[2022-01-29] MEDS: Melatonin 3 MG TAB PO SCH (20:55)
[2022-01-29] MEDS: Senokot S 8.6-50 MG TAB PO SCH (20:59)
[2022-01-30] MEDS: cloNIDine 0.2 MG TAB PO SCH ×4 (03:35→23:42)
[2022-01-30 03:58] LABS: #Eosinphils 0.4 thou/uL (0.0-0.7); #Lymphocytes 1.1 thou/uL (1.20-3.40); #Monocytes 0.9 thou/uL (0.11-0.59); #Neutrophils 5.8 thou/uL (1.40-6.50); %Basophils 0.2 % (0.0-1.0); %Eosinophils 4.7 % (0.0-10.0); %Lymphocytes 12.8 % (28.0-48.0); %Monocytes 11.6 % (0.0-4.0); %Neutrophils 70.8 % (31.0-61.0); Hemoglobin 9.5 g/dL (14.0-18.0); Mean Corpuscular HGB CONC 33.5 g/dL (32.0-36.0); Mean Corpuscular Hemoglobin 30.5 pg (25.0-35.0); Mean Corpuscular Volume 91.1 fL (78.0-98.0); Platelet Count 373 thou/uL (130-400); RBC Distribution Width 12.6 % (11.5-14.5); White Blood Cell (WBC) Count 8.2 thou/uL (4.8-10.8)
[2022-01-30 04:29] LABS: Anion Gap 13 mmol/L (10-20); BUN (Urea Nitrogen) 21 mg/dL (8.9-20.6); Calc. Creatinine Clearance 188 mL/min (70-130); Calcium 8.7 mg/dL (7.8-10.44); Carbon Dioxide 27 mmol/L (22-29); Chloride 100 mmol/L (98-107); Estimated GFR 134; Glucose 147 mg/dL (70-105); Magnesium 1.8 mg/dL (1.7-2.2); Phosphorus 3.7 mg/dL (2.3-4.7); Potassium 4.2 mmol/L (3.5-5.1); Sodium 136 mmol/L (136-145)
[2022-01-30] MEDS: traMADol HCl 50 MG TAB PO SCH ×4 (05:34→23:43)
[2022-01-30] MEDS: Acetaminophen 500 MG TAB PO SCH ×4 (05:35→23:42)
[2022-01-30] MEDS ORDERED: Milk Of Magnesia 30 ML UDCUP PO SCH (07:00)
[2022-01-30] MEDS: Chlorhexidine Gluconate 15 ML UDCUP SSP SCH ×2 (08:02→20:41)
[2022-01-30] MEDS: Pregabalin 50 MG CAP PO SCH ×2 (08:03→20:43)
[2022-01-30] MEDS: Senokot S 8.6-50 MG TAB PO SCH ×2 (08:03→20:43)
[2022-01-30] MEDS: carBAMazepine 200 MG TAB PO SCH (08:03)
[2022-01-30] MEDS: Ferrous Sulfate 325 MG TAB PO SCH (08:03)
[2022-01-30] MEDS: Citalopram 20 MG TAB PO SCH (08:03)
[2022-01-30] MEDS: Amoxicillin/Potassium Clav 875 MG TAB PO SCH ×2 (08:03→20:41)
[2022-01-30] MEDS: Famotidine/PF 20 mg/2ml Vial SLOW IVP SCH ×2 (08:03→20:45)
[2022-01-30] MEDS: clonazePAM 1 MG TAB PO SCH ×2 (08:03→20:42)
[2022-01-30] MEDS: Enoxaparin Sodium 40 MG/0.4 ML SYRINGE SC SCH (08:03)
[2022-01-30] MEDS: Ascorbic Acid 500 mg Chewable Tablet PO SCH (08:03)
[2022-01-30] MEDS: Oxymetazoline HCl 0.05% (30 ML BOT) NS SCH ×2 (08:04→20:41)
[2022-01-30] MEDS: Bacitracin-Polymyxin B Opth Oint 3.5 GM TUBE EA EYE SCH ×2 (08:04→20:40)
[2022-01-30] MEDS: Polyethylene Glycol 3350 17 GM Packet PER TUBE SCH (08:05)
[2022-01-30] MEDS: carBAMazepine SR 300 mg Capsule PO SCH ×2 (14:14→20:43)
[2022-01-30] MEDS: Melatonin 3 MG TAB PO SCH (20:41)
[2022-01-31] MEDS: Acetaminophen 500 MG TAB PO SCH ×4 (05:10→23:00)
[2022-01-31] MEDS: traMADol HCl 50 MG TAB PO SCH ×4 (05:11→19:12)
[2022-01-31] MEDS: cloNIDine 0.2 MG TAB PO SCH ×4 (05:12→23:00)
[2022-01-31 05:29] LABS: #Eosinphils 0.2 thou/uL (0.0-0.7); #Monocytes 0.8 thou/uL (0.11-0.59); #Neutrophils 7.9 thou/uL (1.40-6.50); %Basophils 0.3 % (0.0-1.0); %Eosinophils 1.8 % (0.0-10.0); %Lymphocytes 9.8 % (28.0-48.0); %Monocytes 7.9 % (0.0-4.0); %Neutrophils 80.2 % (31.0-61.0); Hemoglobin 10.4 g/dL (14.0-18.0); Mean Corpuscular HGB CONC 33.5 g/dL (32.0-36.0); Mean Corpuscular Hemoglobin 30.8 pg (25.0-35.0); Mean Corpuscular Volume 91.8 fL (78.0-98.0); Mean Platelet Volume 5.9 fL (7.4-10.4); Platelet Count 466 thou/uL (130-400); RBC Distribution Width 12.8 % (11.5-14.5); Red Blood Cell (RBC) Count 3.37 mill/uL (4.00-5.20); White Blood Cell (WBC) Count 9.9 thou/uL (4.8-10.8)
[2022-01-31 05:50] LABS: Anion Gap 14 mmol/L (10-20); BUN (Urea Nitrogen) 19 mg/dL (8.9-20.6); Calc. Creatinine Clearance 194 mL/min (70-130); Calcium 9.5 mg/dL (7.8-10.44); Carbon Dioxide 28 mmol/L (22-29); Chloride 99 mmol/L (98-107); Estimated GFR 134; Glucose 117 mg/dL (70-105); Magnesium 2.1 mg/dL (1.7-2.2); Phosphorus 3.6 mg/dL (2.3-4.7); Potassium 4.8 mmol/L (3.5-5.1); Sodium 136 mmol/L (136-145)
[2022-01-31] MEDS: Sodium Chloride 0.9% 1,000 ML IV SCH ×2 (07:38→14:34)
[2022-01-31] MEDS ORDERED: Ketorolac Tromethamine 30 MG/ML VIAL IVP SCH (08:30)
[2022-01-31] MEDS: clonazePAM 1 MG TAB PO SCH (08:52)
[2022-01-31] MEDS: Citalopram 20 MG TAB PO SCH (08:52)
[2022-01-31] MEDS: Bacitracin-Polymyxin B Opth Oint 3.5 GM TUBE EA EYE SCH ×2 (08:52→20:52)
[2022-01-31] MEDS: Chlorhexidine Gluconate 15 ML UDCUP SSP SCH ×2 (08:53→20:53)
[2022-01-31] MEDS: Pregabalin 50 MG CAP PO SCH ×2 (08:53→20:54)
[2022-01-31] MEDS: Ascorbic Acid 500 mg Chewable Tablet PO SCH (08:53)
[2022-01-31] MEDS: Polyethylene Glycol 3350 17 GM Packet PER TUBE SCH (08:54)
[2022-01-31] MEDS: Oxymetazoline HCl 0.05% (30 ML BOT) NS SCH ×2 (08:54→20:52)
[2022-01-31] MEDS: Enoxaparin Sodium 40 MG/0.4 ML SYRINGE SC SCH (08:54)
[2022-01-31] MEDS: carBAMazepine SR 300 mg Capsule PO SCH ×3 (08:54→20:54)
[2022-01-31] MEDS: Ferrous Sulfate 325 MG TAB PO SCH (08:54)
[2022-01-31] MEDS: Amoxicillin/Potassium Clav 875 MG TAB PO SCH ×2 (08:54→20:55)
[2022-01-31] MEDS: Senokot S 8.6-50 MG TAB PO SCH ×2 (08:54→20:54)
[2022-01-31] MEDS: Famotidine/PF 20 mg/2ml Vial SLOW IVP SCH ×2 (08:56→20:54)
[2022-01-31] MEDS: Ketorolac Tromethamine 30 MG/ML VIAL IVP SCH ×3 (11:39→23:00)
[2022-01-31] MEDS ORDERED: CEFAZOLIN 2 GM in Sodium Chloride 0.9% 100 ML IVPB SCH ×2 (13:00→17:00)
[2022-01-31] MEDS ORDERED: CEFAZOLIN 2 GM VIAL ONE (14:42)
[2022-01-31] MEDS ORDERED: Sodium Chloride 0.9% 100 ML ONE (14:42)
[2022-01-31] MEDS ORDERED: fentaNYL Citrate/PF 100 MCG/2 ML SYRINGE ONE ×3 (14:48→15:39)
[2022-01-31] MEDS ORDERED: PROPOFOL 200 MG/20 ML VIAL ONE (14:53)
[2022-01-31] MEDS ORDERED: Esmolol 100 MG/10 ML VIAL ONE (14:53)
[2022-01-31] MEDS ORDERED: Lidocaine 1% PF 5 ML VIAL ONE (14:53)
[2022-01-31] MEDS ORDERED: Ondansetron PF 4 MG/2 ML Vial ONE (14:53)
[2022-01-31] MEDS ORDERED: Dexamethasone 20 MG/5 ML VIAL ONE (14:53)
[2022-01-31] MEDS ORDERED: HYDROmorphone 2 MG/ML VIAL ONE (16:07)
[2022-01-31] MEDS ORDERED: Dexmedetomidine 200 MCG/2 ML VIAL ONE (16:32)
[2022-01-31] MEDS ORDERED: Promethazine HCl 25 MG/ML VIAL IVPB PRN (17:27)
[2022-01-31] MEDS ORDERED: Meperidine HCl/PF 25 MG/ML VIAL SLOW IVP PRN (17:27)
[2022-01-31] MEDS ORDERED: Promethazine HCl 25 MG/ML VIAL IM PRN (17:27)
[2022-01-31] MEDS ORDERED: HYDROmorphone 2 MG/ML VIAL SLOW IVP PRN (17:27)
[2022-01-31] MEDS ORDERED: Fentanyl 100 MCG/2 ML VIAL ONE (17:40)
[2022-01-31] MEDS: Morphine 2 MG/ML VIAL SLOW IVP PRN ×2 (18:39→20:51)
[2022-01-31] MEDS: Melatonin 3 MG TAB PO SCH (20:54)
[2022-02-01] MEDS: Sodium Chloride 0.9% 1,000 ML IV SCH ×2 (00:08→09:37)
[2022-02-01] MEDS: traMADol HCl 50 MG TAB PO SCH ×2 (00:10→05:00)
[2022-02-01] MEDS: Morphine 2 MG/ML VIAL SLOW IVP PRN ×2 (04:50→20:42)
[2022-02-01] MEDS: Acetaminophen 500 MG TAB PO SCH (05:00)
[2022-02-01] MEDS: cloNIDine 0.2 MG TAB PO SCH (05:00)
[2022-02-01] MEDS: Ketorolac Tromethamine 30 MG/ML VIAL IVP SCH ×3 (05:00→17:59)
[2022-02-01 05:27] LABS: #Eosinphils 0.2 thou/uL (0.0-0.7); #Lymphocytes 0.9 thou/uL (1.20-3.40); #Monocytes 0.8 thou/uL (0.11-0.59); %Eosinophils 1.9 % (0.0-10.0); %Lymphocytes 9.4 % (28.0-48.0); %Monocytes 7.9 % (0.0-4.0); %Neutrophils 80.7 % (31.0-61.0); Hemoglobin 9.1 g/dL (14.0-18.0); Mean Corpuscular HGB CONC 32.4 g/dL (32.0-36.0); Mean Corpuscular Hemoglobin 29.6 pg (25.0-35.0); Mean Corpuscular Volume 91.4 fL (78.0-98.0); Mean Platelet Volume 5.9 fL (7.4-10.4); Platelet Count 484 thou/uL (130-400); RBC Distribution Width 12.8 % (11.5-14.5); Red Blood Cell (RBC) Count 3.06 mill/uL (4.00-5.20); White Blood Cell (WBC) Count 9.9 thou/uL (4.8-10.8)
[2022-02-01 05:43] LABS: Anion Gap 12 mmol/L (10-20); BUN (Urea Nitrogen) 23 mg/dL (8.9-20.6); Calc. Creatinine Clearance 206 mL/min (70-130); Calcium 8.5 mg/dL (7.8-10.44); Carbon Dioxide 26 mmol/L (22-29); Chloride 99 mmol/L (98-107); Estimated GFR 136; Glucose 120 mg/dL (70-105); Magnesium 2.1 mg/dL (1.7-2.2); Phosphorus 3.4 mg/dL (2.3-4.7); Potassium 4.4 mmol/L (3.5-5.1); Sodium 133 mmol/L (136-145)
[2022-02-01] MEDS: Enoxaparin Sodium 30 MG/0.3 ML SYRINGE SC SCH ×2 (09:35→20:41)
[2022-02-01] MEDS: Amoxicillin/Potassium Clav 875 MG TAB PO SCH ×2 (09:35→20:39)
[2022-02-01] MEDS: Bacitracin-Polymyxin B Opth Oint 3.5 GM TUBE EA EYE SCH ×2 (09:35→20:41)
[2022-02-01] MEDS: Senokot S 8.6-50 MG TAB PO SCH ×3 (09:36→20:43)
[2022-02-01] MEDS: Famotidine 20 MG TAB PO SCH ×2 (09:36→20:39)
[2022-02-01] MEDS: Pregabalin 50 MG CAP PO SCH ×2 (09:36→20:39)
[2022-02-01] MEDS: Oxymetazoline HCl 0.05% (30 ML BOT) NS SCH ×2 (09:36→20:41)
[2022-02-01] MEDS: carBAMazepine SR 300 mg Capsule PO SCH ×2 (09:36→16:09)
[2022-02-01] MEDS: Ferrous Sulfate 325 MG TAB PO SCH (09:36)
[2022-02-01] MEDS: Citalopram 20 MG TAB PO SCH (09:36)
[2022-02-01] MEDS: Chlorhexidine Gluconate 15 ML UDCUP SSP SCH ×2 (09:36→20:41)
[2022-02-01] MEDS: Ascorbic Acid 500 mg Chewable Tablet PO SCH (09:36)
[2022-02-01] MEDS: Polyethylene Glycol 3350 17 GM Packet PER TUBE SCH (09:37)
[2022-02-01] MEDS ORDERED: Iopamidol 300 61% 50 ML VIAL FS ONE (09:39)
[2022-02-01] MEDS: Acetaminophen/Codeine 30-300mg Tablet PO SCH ×2 (12:20→17:59)
[2022-02-01] MEDS: cloNIDine 0.1 MG TAB PO SCH ×2 (12:21→17:59)
[2022-02-01] MEDS: Acetaminophen 325 MG TAB PO SCH ×2 (12:21→17:59)
[2022-02-01] MEDS: Melatonin 3 MG TAB PO SCH (20:38)
[2022-02-01] MEDS: carBAMazepine 20 MG/ML ORAL SUSP PO SCH (20:40)
[2022-02-01] MEDS ORDERED: Promethazine HCl 12.5 MG in Sodium Chloride 0.9% 50 ML IVPB SCH (23:15)
[2022-02-02] MEDS: Acetaminophen/Codeine 30-300mg Tablet PO SCH ×4 (01:52→17:55)
[2022-02-02] MEDS: Acetaminophen 325 MG TAB PO SCH ×4 (01:53→17:55)
[2022-02-02] MEDS: cloNIDine 0.1 MG TAB PO SCH ×4 (01:54→17:54)
[2022-02-02] MEDS: Morphine 2 MG/ML VIAL SLOW IVP PRN (01:54)
[2022-02-02] MEDS: Ketorolac Tromethamine 30 MG/ML VIAL IVP SCH ×3 (01:54→12:25)
[2022-02-02] MEDS: carBAMazepine 20 MG/ML ORAL SUSP PO SCH ×3 (05:40→21:04)
[2022-02-02 05:52] LABS: #Basophils 0.1 thou/uL (0.0-0.2); #Eosinphils 0.1 thou/uL (0.0-0.7); #Lymphocytes 1.2 thou/uL (1.20-3.40); #Neutrophils 9.7 thou/uL (1.40-6.50); %Basophils 0.5 % (0.0-1.0); %Eosinophils 0.6 % (0.0-10.0); %Lymphocytes 10.2 % (28.0-48.0); %Monocytes 8.6 % (0.0-4.0); %Neutrophils 80.1 % (31.0-61.0); Hemoglobin 9.3 g/dL (14.0-18.0); Mean Corpuscular HGB CONC 33.3 g/dL (32.0-36.0); Mean Corpuscular Hemoglobin 30.7 pg (25.0-35.0); Mean Corpuscular Volume 92.4 fL (78.0-98.0); Mean Platelet Volume 6.2 fL (7.4-10.4); Platelet Count 522 thou/uL (130-400); RBC Distribution Width 12.7 % (11.5-14.5); Red Blood Cell (RBC) Count 3.01 mill/uL (4.00-5.20); White Blood Cell (WBC) Count 12.1 thou/uL (4.8-10.8)
[2022-02-02] MEDS ORDERED: clonazePAM 0.5 MG TAB PO SCH (10:00)
[2022-02-02] MEDS: Enoxaparin Sodium 30 MG/0.3 ML SYRINGE SC SCH ×2 (10:19→21:00)
[2022-02-02] MEDS: Ferrous Sulfate 325 MG TAB PO SCH (10:19)
[2022-02-02] MEDS: Amoxicillin/Potassium Clav 875 MG TAB PO SCH ×2 (10:19→21:01)
[2022-02-02] MEDS: Pregabalin 50 MG CAP PO SCH ×2 (10:20→21:03)
[2022-02-02] MEDS: Famotidine 20 MG TAB PO SCH ×2 (10:20→21:02)
[2022-02-02] MEDS: Ascorbic Acid 500 mg Chewable Tablet PO SCH (10:20)
[2022-02-02] MEDS: Citalopram 20 MG TAB PO SCH (10:20)
[2022-02-02] MEDS: Chlorhexidine Gluconate 15 ML UDCUP SSP SCH ×2 (10:21→21:01)
[2022-02-02] MEDS: Bacitracin-Polymyxin B Opth Oint 3.5 GM TUBE EA EYE SCH ×2 (10:21→21:01)
[2022-02-02] MEDS: Senokot S 8.6-50 MG TAB PO SCH ×2 (10:22→21:05)
[2022-02-02] MEDS: Oxymetazoline HCl 0.05% (30 ML BOT) NS SCH ×2 (10:22→21:02)
[2022-02-02] MEDS: Polyethylene Glycol 3350 17 GM Packet PER TUBE SCH (10:22)
[2022-02-02] MEDS: Melatonin 3 MG TAB PO SCH (21:02)
[2022-02-02] MEDS: clonazePAM 0.5 MG TAB PO SCH (21:03)
[2022-02-03] MEDS: Acetaminophen 325 MG TAB PO SCH ×5 (00:14→22:18)
[2022-02-03] MEDS: Acetaminophen/Codeine 30-300mg Tablet PO SCH ×5 (00:14→22:17)
[2022-02-03] MEDS: cloNIDine 0.1 MG TAB PO SCH ×5 (00:15→22:18)
[2022-02-03] MEDS: carBAMazepine 20 MG/ML ORAL SUSP PO SCH ×3 (05:23→23:03)
[2022-02-03] MEDS: Senokot S 8.6-50 MG TAB PO SCH ×2 (08:01→21:44)
[2022-02-03] MEDS: Polyethylene Glycol 3350 17 GM Packet PER TUBE SCH (08:01)
[2022-02-03] MEDS: Citalopram 20 MG TAB PO SCH (08:02)
[2022-02-03] MEDS: Pregabalin 50 MG CAP PO SCH ×2 (08:02→21:47)
[2022-02-03] MEDS: Ascorbic Acid 500 mg Chewable Tablet PO SCH (08:02)
[2022-02-03] MEDS: Enoxaparin Sodium 30 MG/0.3 ML SYRINGE SC SCH ×2 (08:02→21:48)
[2022-02-03] MEDS: Famotidine 20 MG TAB PO SCH ×2 (08:02→21:44)
[2022-02-03] MEDS: Ferrous Sulfate 325 MG TAB PO SCH (08:02)
[2022-02-03] MEDS: Chlorhexidine Gluconate 15 ML UDCUP SSP SCH ×2 (08:02→21:43)
[2022-02-03] MEDS: clonazePAM 0.5 MG TAB PO SCH ×2 (08:02→21:47)
[2022-02-03] MEDS: Amoxicillin/Potassium Clav 875 MG TAB PO SCH ×2 (08:02→21:43)
[2022-02-03] MEDS: Oxymetazoline HCl 0.05% (30 ML BOT) NS SCH ×2 (08:03→21:48)
[2022-02-03] MEDS: Bacitracin-Polymyxin B Opth Oint 3.5 GM TUBE EA EYE SCH ×2 (08:03→21:48)
[2022-02-03 14:13] VITALS: BMI 25.9
[2022-02-03] MEDS: Melatonin 3 MG TAB PO SCH (21:44)
[2022-02-04] MEDS: Morphine 2 MG/ML VIAL SLOW IVP PRN (02:56)
[2022-02-04] MEDS: Acetaminophen/Codeine 30-300mg Tablet PO SCH ×3 (05:51→18:09)
[2022-02-04] MEDS: Acetaminophen 325 MG TAB PO SCH ×3 (05:51→18:07)
[2022-02-04] MEDS: cloNIDine 0.1 MG TAB PO SCH ×3 (05:52→18:10)
[2022-02-04] MEDS: carBAMazepine 20 MG/ML ORAL SUSP PO SCH ×3 (05:52→22:15)
[2022-02-04] MEDS: Polyethylene Glycol 3350 17 GM Packet PER TUBE SCH (08:52)
[2022-02-04] MEDS: Chlorhexidine Gluconate 15 ML UDCUP SSP SCH ×3 (08:52→21:53)
[2022-02-04] MEDS: Enoxaparin Sodium 30 MG/0.3 ML SYRINGE SC SCH ×2 (08:52→21:27)
[2022-02-04] MEDS: Famotidine 20 MG TAB PO SCH ×2 (08:53→21:25)
[2022-02-04] MEDS: Ferrous Sulfate 325 MG TAB PO SCH (08:53)
[2022-02-04] MEDS: Ascorbic Acid 500 mg Chewable Tablet PO SCH (08:53)
[2022-02-04] MEDS: clonazePAM 0.5 MG TAB PO SCH ×2 (08:54→21:25)
[2022-02-04] MEDS: Pregabalin 50 MG CAP PO SCH ×2 (08:54→21:22)
[2022-02-04] MEDS: Citalopram 20 MG TAB PO SCH (08:55)
[2022-02-04] MEDS: Senokot S 8.6-50 MG TAB PO SCH ×2 (08:55→21:24)
[2022-02-04] MEDS: Bacitracin-Polymyxin B Opth Oint 3.5 GM TUBE EA EYE SCH ×2 (08:55→21:27)
[2022-02-04] MEDS ORDERED: Scopolamine 1.5 mg/72 hour Patch TD SCH (09:00)
[2022-02-04] MEDS: Oxymetazoline HCl 0.05% (30 ML BOT) NS SCH ×2 (12:21→21:52)
[2022-02-04] MEDS: Melatonin 3 MG TAB PO SCH (21:25)
[2022-02-05] MEDS: Acetaminophen/Codeine 30-300mg Tablet PO SCH ×5 (00:34→23:50)
[2022-02-05] MEDS: Acetaminophen 325 MG TAB PO SCH ×5 (00:35→23:50)
[2022-02-05] MEDS: cloNIDine 0.1 MG TAB PO SCH ×5 (00:35→23:51)
[2022-02-05 05:37] LABS: #Basophils 0.1 thou/uL (0.0-0.2); #Eosinphils 0.2 thou/uL (0.0-0.7); #Lymphocytes 1.5 thou/uL (1.20-3.40); #Monocytes 0.9 thou/uL (0.11-0.59); #Neutrophils 5.8 thou/uL (1.40-6.50); %Basophils 0.7 % (0.0-1.0); %Eosinophils 1.9 % (0.0-10.0); %Monocytes 10.5 % (0.0-4.0); %Neutrophils 68.9 % (31.0-61.0); Hemoglobin 8.9 g/dL (14.0-18.0); Mean Corpuscular Hemoglobin 29.8 pg (25.0-35.0); Mean Corpuscular Volume 90.3 fL (78.0-98.0); Mean Platelet Volume 5.9 fL (7.4-10.4); Platelet Count 714 thou/uL (130-400); RBC Distribution Width 12.8 % (11.5-14.5); White Blood Cell (WBC) Count 8.4 thou/uL (4.8-10.8)
[2022-02-05 05:56] LABS: Anion Gap 12 mmol/L (10-20); BUN (Urea Nitrogen) 25 mg/dL (8.9-20.6); Calc. Creatinine Clearance 201 mL/min (70-130); Calcium 9.3 mg/dL (7.8-10.44); Carbon Dioxide 29 mmol/L (22-29); Chloride 100 mmol/L (98-107); Estimated GFR 135; Glucose 90 mg/dL (70-105); Magnesium 2.3 mg/dL (1.7-2.2); Phosphorus 4.3 mg/dL (2.3-4.7); Potassium 4.5 mmol/L (3.5-5.1); Sodium 136 mmol/L (136-145)
[2022-02-05] MEDS: carBAMazepine 20 MG/ML ORAL SUSP PO SCH ×3 (06:19→22:19)
[2022-02-05] MEDS: Chlorhexidine Gluconate 15 ML UDCUP SSP SCH ×3 (08:50→20:47)
[2022-02-05] MEDS: Pregabalin 50 MG CAP PO SCH ×2 (08:50→20:47)
[2022-02-05] MEDS: Citalopram 20 MG TAB PO SCH (08:50)
[2022-02-05] MEDS: Senokot S 8.6-50 MG TAB PO SCH ×2 (08:51→20:48)
[2022-02-05] MEDS: Ascorbic Acid 500 mg Chewable Tablet PO SCH (08:51)
[2022-02-05] MEDS: Ferrous Sulfate 325 MG TAB PO SCH (08:51)
[2022-02-05] MEDS: Famotidine 20 MG TAB PO SCH ×2 (08:51→20:48)
[2022-02-05] MEDS: clonazePAM 0.5 MG TAB PO SCH ×2 (08:51→20:48)
[2022-02-05] MEDS: Oxymetazoline HCl 0.05% (30 ML BOT) NS SCH ×2 (08:52→20:46)
[2022-02-05] MEDS: Enoxaparin Sodium 30 MG/0.3 ML SYRINGE SC SCH ×2 (08:52→20:48)
[2022-02-05] MEDS: Polyethylene Glycol 3350 17 GM Packet PER TUBE SCH (08:52)
[2022-02-05] MEDS: Bacitracin-Polymyxin B Opth Oint 3.5 GM TUBE EA EYE SCH ×2 (10:21→20:47)
[2022-02-05] MEDS: Melatonin 3 MG TAB PO SCH (20:48)
[2022-02-06] MEDS: Acetaminophen/Codeine 30-300mg Tablet PO SCH ×3 (06:22→17:54)
[2022-02-06] MEDS: cloNIDine 0.1 MG TAB PO SCH ×3 (06:23→17:54)
[2022-02-06] MEDS: Acetaminophen 325 MG TAB PO SCH ×3 (06:23→17:54)
[2022-02-06] MEDS: carBAMazepine 20 MG/ML ORAL SUSP PO SCH ×3 (06:24→20:55)
[2022-02-06] MEDS ORDERED: Scopolamine 1.5 mg/72 hour Patch TD PRN (07:10)
[2022-02-06] MEDS: Pregabalin 50 MG CAP PO SCH ×2 (08:32→20:53)
[2022-02-06] MEDS: Enoxaparin Sodium 30 MG/0.3 ML SYRINGE SC SCH ×2 (08:32→20:53)
[2022-02-06] MEDS: Polyethylene Glycol 3350 17 GM Packet PER TUBE SCH (08:32)
[2022-02-06] MEDS: Famotidine 20 MG TAB PO SCH ×2 (08:33→20:53)
[2022-02-06] MEDS: Ascorbic Acid 500 mg Chewable Tablet PO SCH (08:33)
[2022-02-06] MEDS: Oxymetazoline HCl 0.05% (30 ML BOT) NS SCH ×2 (08:33→20:53)
[2022-02-06] MEDS: Citalopram 20 MG TAB PO SCH (08:33)
[2022-02-06] MEDS: Chlorhexidine Gluconate 15 ML UDCUP SSP SCH ×3 (08:33→20:53)
[2022-02-06] MEDS: Senokot S 8.6-50 MG TAB PO SCH ×2 (08:33→20:54)
[2022-02-06] MEDS: Ferrous Sulfate 325 MG TAB PO SCH (08:33)
[2022-02-06] MEDS: clonazePAM 0.5 MG TAB PO SCH ×2 (08:33→20:53)
[2022-02-06] MEDS: Bacitracin-Polymyxin B Opth Oint 3.5 GM TUBE EA EYE SCH ×2 (08:58→20:53)
[2022-02-06] MEDS: Melatonin 3 MG TAB PO SCH (20:53)
[2022-02-07] MEDS: Acetaminophen/Codeine 30-300mg Tablet PO SCH ×4 (00:30→18:34)
[2022-02-07] MEDS: cloNIDine 0.1 MG TAB PO SCH ×4 (00:30→18:35)
[2022-02-07] MEDS: Acetaminophen 325 MG TAB PO SCH ×4 (00:30→18:34)
[2022-02-07] MEDS: carBAMazepine 20 MG/ML ORAL SUSP PO SCH ×3 (04:40→20:51)
[2022-02-07 06:17] LABS: #Eosinphils 0.2 thou/uL (0.0-0.7); #Lymphocytes 1.1 thou/uL (1.20-3.40); #Monocytes 0.6 thou/uL (0.11-0.59); %Basophils 0.7 % (0.0-1.0); %Eosinophils 3.9 % (0.0-10.0); %Lymphocytes 18.9 % (28.0-48.0); %Monocytes 10.6 % (0.0-4.0); %Neutrophils 65.9 % (31.0-61.0); Hemoglobin 8.8 g/dL (14.0-18.0); Mean Corpuscular HGB CONC 32.8 g/dL (32.0-36.0); Mean Corpuscular Volume 91.5 fL (78.0-98.0); Mean Platelet Volume 5.8 fL (7.4-10.4); Platelet Count 656 thou/uL (130-400); Red Blood Cell (RBC) Count 2.95 mill/uL (4.00-5.20)
[2022-02-07] MEDS: Citalopram 20 MG TAB PO SCH (08:58)
[2022-02-07] MEDS: Senokot S 8.6-50 MG TAB PO SCH ×2 (08:58→20:51)
[2022-02-07] MEDS: clonazePAM 0.5 MG TAB PO SCH ×2 (08:58→20:51)
[2022-02-07] MEDS: Ferrous Sulfate 325 MG TAB PO SCH (08:58)
[2022-02-07] MEDS: Ascorbic Acid 500 mg Chewable Tablet PO SCH (08:58)
[2022-02-07] MEDS: Pregabalin 50 MG CAP PO SCH ×2 (08:58→20:51)
[2022-02-07] MEDS: Oxymetazoline HCl 0.05% (30 ML BOT) NS SCH ×2 (08:59→20:45)
[2022-02-07] MEDS: Enoxaparin Sodium 30 MG/0.3 ML SYRINGE SC SCH ×2 (08:59→20:51)
[2022-02-07] MEDS: Chlorhexidine Gluconate 15 ML UDCUP SSP SCH ×3 (08:59→20:50)
[2022-02-07] MEDS: Polyethylene Glycol 3350 17 GM Packet PER TUBE SCH (08:59)
[2022-02-07] MEDS: Melatonin 3 MG TAB PO SCH (20:50)
[2022-02-07 22:43] LABS: Bilirubin Negative (Negative); Blood, Urine Negative (Negative); Clarity Turbid (Clear); Glucose, Urine (Dipstick) Normal (Negative); Ketone, Urine Negative (Negative); Leukocyte 500 Leu/uL (Negative); Nitrite 2+ (Negative); Protein, Urine (Dipstick) 20 mg/dL (Neg-Trace); Specific Gravity, Urine 1.019 (1.002-1.036); Squamous Epithelial None Seen HPF (0-3); Urobilinogen Normal mg/dL (Less than 2); pH, Urine 8.5 (5.0-9.0)
[2022-02-07 22:44] LABS: Bacteria/HPF 2+ HPF (None Seen); RBC/HPF 0-3 HPF (0-3); Triple Phosphate Crystal 1+ HPF (None Seen)
[2022-02-08] MEDS: Acetaminophen/Codeine 30-300mg Tablet PO SCH ×4 (00:02→19:22)
[2022-02-08] MEDS: Acetaminophen 325 MG TAB PO SCH ×4 (00:02→19:21)
[2022-02-08] MEDS: cloNIDine 0.1 MG TAB PO SCH ×2 (00:03→05:31)
[2022-02-08] MEDS: carBAMazepine 20 MG/ML ORAL SUSP PO SCH ×2 (05:32→20:42)
[2022-02-08] MEDS ORDERED: Sodium Chloride 0.9% 100 ML ONE (08:53)
[2022-02-08] MEDS ORDERED: CEFAZOLIN 2 GM VIAL ONE (08:53)
[2022-02-08] MEDS: Polyethylene Glycol 3350 17 GM Packet PER TUBE SCH (08:57)
[2022-02-08] MEDS: Enoxaparin Sodium 30 MG/0.3 ML SYRINGE SC SCH ×2 (08:57→20:42)
[2022-02-08] MEDS: Pregabalin 50 MG CAP PO SCH ×2 (08:57→20:43)
[2022-02-08] MEDS: Chlorhexidine Gluconate 15 ML UDCUP SSP SCH ×3 (08:57→20:42)
[2022-02-08] MEDS: Ferrous Sulfate 325 MG TAB PO SCH ×2 (08:58→16:47)
[2022-02-08] MEDS: Citalopram 20 MG TAB PO SCH (08:58)
[2022-02-08] MEDS: Senokot S 8.6-50 MG TAB PO SCH ×2 (08:59→20:44)
[2022-02-08] MEDS: Ascorbic Acid 500 mg Chewable Tablet PO SCH ×2 (08:59→20:44)
[2022-02-08] MEDS: Oxymetazoline HCl 0.05% (30 ML BOT) NS SCH ×2 (09:00→20:44)
[2022-02-08] MEDS: clonazePAM 0.5 MG TAB PO SCH ×2 (09:00→20:44)
[2022-02-08] MEDS: Glycerin Adult Supp. (24 ct jar) PR SCH (16:46)
[2022-02-08] MEDS: Melatonin 3 MG TAB PO SCH (20:44)
[2022-02-08] MEDS ORDERED: cloNIDine 0.1 MG TAB PO SCH (21:00)
[2022-02-09] MEDS: Acetaminophen 325 MG TAB PO SCH ×5 (00:42→23:37)
[2022-02-09] MEDS: Acetaminophen/Codeine 30-300mg Tablet PO SCH ×5 (00:42→23:38)
[2022-02-09] MEDS: Chlorhexidine Gluconate 15 ML UDCUP SSP SCH ×3 (08:18→21:21)
[2022-02-09] MEDS: Polyethylene Glycol 3350 17 GM Packet PER TUBE SCH (08:18)
[2022-02-09] MEDS: Enoxaparin Sodium 30 MG/0.3 ML SYRINGE SC SCH ×2 (08:19→21:21)
[2022-02-09] MEDS: Ferrous Sulfate 325 MG TAB PO SCH ×2 (08:19→16:26)
[2022-02-09] MEDS: clonazePAM 0.5 MG TAB PO SCH ×2 (08:19→21:21)
[2022-02-09] MEDS: Ascorbic Acid 500 mg Chewable Tablet PO SCH ×2 (08:19→21:22)
[2022-02-09] MEDS: Senokot S 8.6-50 MG TAB PO SCH ×2 (08:19→21:22)
[2022-02-09] MEDS: Pregabalin 50 MG CAP PO SCH ×2 (08:19→21:22)
[2022-02-09] MEDS: Citalopram 20 MG TAB PO SCH (08:19)
[2022-02-09] MEDS: Oxymetazoline HCl 0.05% (30 ML BOT) NS SCH ×2 (08:21→21:22)
[2022-02-09] MEDS: carBAMazepine 20 MG/ML ORAL SUSP PO SCH (08:22)
[2022-02-09] MEDS: Glycerin Adult Supp. (24 ct jar) PR SCH (08:53)
[2022-02-09] MEDS: Melatonin 3 MG TAB PO SCH (21:21)
[2022-02-10] MEDS: Acetaminophen/Codeine 30-300mg Tablet PO SCH ×3 (06:43→17:40)
[2022-02-10] MEDS: Acetaminophen 325 MG TAB PO SCH ×3 (06:43→17:39)
[2022-02-10] MEDS ORDERED: Pregabalin 50 MG CAP PO SCH (09:19)
[2022-02-10] MEDS: Citalopram 20 MG TAB PO SCH (09:38)
[2022-02-10] MEDS: Chlorhexidine Gluconate 15 ML UDCUP SSP SCH ×3 (09:38→21:17)
[2022-02-10] MEDS: Ferrous Sulfate 325 MG TAB PO SCH ×2 (09:38→17:24)
[2022-02-10] MEDS: Polyethylene Glycol 3350 17 GM Packet PER TUBE SCH (09:39)
[2022-02-10] MEDS: Senokot S 8.6-50 MG TAB PO SCH ×2 (09:39→21:17)
[2022-02-10] MEDS: Enoxaparin Sodium 30 MG/0.3 ML SYRINGE SC SCH ×2 (09:39→21:17)
[2022-02-10] MEDS: Oxymetazoline HCl 0.05% (30 ML BOT) NS SCH ×2 (10:11→21:54)
[2022-02-10] MEDS: Glycerin Adult Supp. (24 ct jar) PR SCH (10:11)
[2022-02-10] MEDS: clonazePAM 0.5 MG TAB PO SCH (10:35)
[2022-02-10] MEDS: Pregabalin 50 MG CAP PO SCH (10:36)
[2022-02-10] MEDS: Ascorbic Acid 500 mg Chewable Tablet PO SCH (17:24)
[2022-02-10] MEDS ORDERED: clonazePAM 0.5 MG TAB PO SCH (21:00)
[2022-02-10] MEDS: Pregabalin 75 MG CAP PO SCH (21:17)
[2022-02-10] MEDS: Melatonin 3 MG TAB PO SCH (21:17)
[2022-02-11] MEDS: Acetaminophen 325 MG TAB PO SCH ×4 (00:02→17:16)
[2022-02-11] MEDS: Acetaminophen/Codeine 30-300mg Tablet PO SCH ×4 (00:02→17:17)
[2022-02-11] MEDS: Ascorbic Acid 500 mg Chewable Tablet PO SCH (09:33)
[2022-02-11] MEDS: Enoxaparin Sodium 30 MG/0.3 ML SYRINGE SC SCH (09:33)
[2022-02-11] MEDS: Citalopram 20 MG TAB PO SCH (09:33)
[2022-02-11] MEDS: Ferrous Sulfate 325 MG TAB PO SCH (09:33)
[2022-02-11] MEDS: Senokot S 8.6-50 MG TAB PO SCH (09:34)
[2022-02-11] MEDS: Pregabalin 75 MG CAP PO SCH (09:34)
[2022-02-11] MEDS: Polyethylene Glycol 3350 17 GM Packet PER TUBE SCH (09:35)
[2022-02-11] MEDS: Oxymetazoline HCl 0.05% (30 ML BOT) NS SCH (09:35)
[2022-02-11] MEDS: Chlorhexidine Gluconate 15 ML UDCUP SSP SCH (09:36)
[2022-02-11] MEDS: Glycerin Adult Supp. (24 ct jar) PR SCH (11:18)
[2022-02-11 17:02] VITALS: BP 125/76; TEMP 98.2
== END 2022-02-11 17:31 | DRG 3 ==
LOC: ERS 04:30 → SDC 08:55 → CCU 09:44 → SURG A 01-30 11:20 → SURG B 02-03 18:56 → SURG A 02-03 18:57
PROVIDERS: ADMIT Surgery; ATTEND Surgery
PROC: 5A1945Z Respiratory Ventilation, 24-96 Consecutive Hours (ICD-10-PCS; 2022-01-23)
PROC: 04LF4DZ Occlusion of Left Internal Iliac Artery with Intraluminal Device, Percutaneous Endoscopic Approach (ICD-10-PCS; 2022-01-23)
PROC: 30233K1 Transfusion of Nonautologous Frozen Plasma into Peripheral Vein, Percutaneous Approach (ICD-10-PCS; 2022-01-23)
PROC: 0QSJ04Z Reposition Right Fibula with Internal Fixation Device, Open Approach (ICD-10-PCS; 2022-01-23)
PROC: 0QSG05Z Reposition Right Tibia with External Fixation Device, Open Approach (ICD-10-PCS; 2022-01-23)
PROC: 0QS304Z Reposition Left Pelvic Bone with Internal Fixation Device, Open Approach (ICD-10-PCS; 2022-01-23)
PROC: 0QS204Z Reposition Right Pelvic Bone with Internal Fixation Device, Open Approach (ICD-10-PCS; 2022-01-23)
PROC: 0QS104Z Reposition Sacrum with Internal Fixation Device, Open Approach (ICD-10-PCS; 2022-01-23)
PROC: 30233N1 Transfusion of Nonautologous Red Blood Cells into Peripheral Vein, Percutaneous Approach (ICD-10-PCS; 2022-01-23)
PROC: 6A550Z2 Pheresis of Platelets, Single (ICD-10-PCS; 2022-01-23)
PROC: 0W9B30Z Drainage of Left Pleural Cavity with Drainage Device, Percutaneous Approach (ICD-10-PCS; 2022-01-23)
PROC: B41D1ZZ Fluoroscopy of Aorta and Bilateral Lower Extremity Arteries using Low Osmolar Contrast (ICD-10-PCS; 2022-01-23)
PROC: 0BH17EZ Insertion of Endotracheal Airway into Trachea, Via Natural or Artificial Opening (ICD-10-PCS; 2022-01-23)
PROC: 0QSGXZZ Reposition Right Tibia, External Approach (ICD-10-PCS; 2022-01-23)
PROC: 0QSJXZZ Reposition Right Fibula, External Approach (ICD-10-PCS; 2022-01-23)
PROC: 0D9670Z Drainage of Stomach with Drainage Device, Via Natural or Artificial Opening (ICD-10-PCS; 2022-01-23)
PROC: 0B113F4 Bypass Trachea to Cutaneous with Tracheostomy Device, Percutaneous Approach (ICD-10-PCS; 2022-01-24)
PROC: 09QK0ZZ Repair Nasal Mucosa and Soft Tissue, Open Approach (ICD-10-PCS; 2022-01-24)
PROC: 0WQ20ZZ Repair Face, Open Approach (ICD-10-PCS; 2022-01-24)
PROC: 0DH63UZ Insertion of Feeding Device into Stomach, Percutaneous Approach (ICD-10-PCS; 2022-01-24)
PROC: 0NSR04Z Reposition Maxilla with Internal Fixation Device, Open Approach (ICD-10-PCS; 2022-01-26)
PROC: 0NSM04Z Reposition Right Zygomatic Bone with Internal Fixation Device, Open Approach (ICD-10-PCS; 2022-01-26)
PROC: 0NSB04Z Reposition Nasal Bone with Internal Fixation Device, Open Approach (ICD-10-PCS; 2022-01-26)
PROC: 0WQ30ZZ Repair Oral Cavity and Throat, Open Approach (ICD-10-PCS; 2022-01-26)
PROC: 06H03DZ Insertion of Intraluminal Device into Inferior Vena Cava, Percutaneous Approach (ICD-10-PCS; 2022-01-26)
PROC: B5191ZZ Fluoroscopy of Inferior Vena Cava using Low Osmolar Contrast (ICD-10-PCS; 2022-01-26)
PROC: 5A1935Z Respiratory Ventilation, Less than 24 Consecutive Hours (ICD-10-PCS; 2022-01-26)
PROC: 0QSG04Z Reposition Right Tibia with Internal Fixation Device, Open Approach (ICD-10-PCS; principal; 2022-01-31)
PROC: 0QPGX5Z Removal of External Fixation Device from Right Tibia, External Approach (ICD-10-PCS; 2022-01-31)
DX: S82.251A Displaced comminuted fracture of shaft of right tibia, initial encounter for closed fracture (principal); J96.00 Acute respiratory failure, unspecified whether with hypoxia or hypercapnia; S32.82XA Multiple fractures of pelvis without disruption of pelvic ring, initial encounter for closed fracture; S32.19XA Other fracture of sacrum, initial encounter for closed fracture; S02.411A LeFort I fracture, initial encounter for closed fracture; S32.019A Unspecified fracture of first lumbar vertebra, initial encounter for closed fracture; S32.049A Unspecified fracture of fourth lumbar vertebra, initial encounter for closed fracture; S02.32XA Fracture of orbital floor, left side, initial encounter for closed fracture; S02.31XA Fracture of orbital floor, right side, initial encounter for closed fracture; S02.2XXB Fracture of nasal bones, initial encounter for open fracture; S12.400A Unspecified displaced fracture of fifth cervical vertebra, initial encounter for closed fracture; S27.0XXA Traumatic pneumothorax, initial encounter; D62 Acute posthemorrhagic anemia; E87.1 Hypo-osmolality and hyponatremia; S27.322A Contusion of lung, bilateral, initial encounter; E87.2 Acidosis; N17.9 Acute kidney failure, unspecified; S02.412A LeFort II fracture, initial encounter for closed fracture; S02.40EA Zygomatic fracture, right side, initial encounter for closed fracture; S02.66XA Fracture of symphysis of mandible, initial encounter for closed fracture; S26.11XA Contusion of heart without hemopericardium, initial encounter; Z20.822 Contact with and (suspected) exposure to COVID-19; Z23 Encounter for immunization; S02.5XXA Fracture of tooth (traumatic), initial encounter for closed fracture; E83.41 Hypermagnesemia; F32.A Depression, unspecified; F12.10 Cannabis abuse, uncomplicated; S82.451A Displaced comminuted fracture of shaft of right fibula, initial encounter for closed fracture; S30.810A Abrasion of lower back and pelvis, initial encounter; I95.89 Other hypotension; T79.6XXA Traumatic ischemia of muscle, initial encounter; E87.6 Hypokalemia; Z78.1 Physical restraint status; E83.39 Other disorders of phosphorus metabolism; R33.8 Other retention of urine; K59.00 Constipation, unspecified; E87.5 Hyperkalemia
CPT/HCPCS: 27810; 31500; 31624; 36140; 36245; 36246; 36415; 36416; 36430; 36600; 37191; 37244; 51610; 70450; 70486; 71045; 71260; 72050; 72125; 72170; 72193; 74177; 74450; 75625; 75710; 75736; 76000; 76377; 80048; 80053; 80306; 80307; 81001; 82550; 82805; 83605; 83735; 84100; 84484; 85025; 85610; 85730; 86850; 86900; 86901; 87040; 90471; 90715; 93005; 93010; 93306; 93970; 94002; 94003; 94640; 96361; 96365; 96374; 96375; C1713; C1769; C1776; C1874; C1880; C1887; C1894; G0390; J0295; J0610; J0690; J1100; J1170; J1650; J1815; J1885; J1940; J2001; J2250; J2270; J2370; J2405; J2550; J2704; J3010; J3475; J3480; J3490; J7050; J7620; J7999; P9016; P9035; P9045; P9048; P9059; Q9967; S0028; U0002; U0003; U0005

== ENCOUNTER 2022-03-25 09:08 | Day surgery (SDC) | payer OTHER ==
[2022-03-24 13:34] VITALS: BMI 19.6
[~2022-03-25 09:08] MED LIST: Iopamidol 370 76% 50 ML VIAL FS ONE
[2022-03-25] MEDS ORDERED: Lidocaine 1% (PF) 30 ML VIAL ONE (11:46)
[2022-03-25] MEDS ORDERED: Fentanyl 100 MCG/2 ML VIAL ONE (11:55)
[2022-03-25] MEDS ORDERED: Midazolam HCl 2 mg/2 ml Vial ONE (11:55)
== END 2022-03-25 14:49 | disposition home or self-care (01) ==
LOC: CCL 09:08
PROVIDERS: ATTEND Thoracic Surgery (Cardiothoracic Vascular Surgery)
PROC: 06PY3DZ Removal of Intraluminal Device from Lower Vein, Percutaneous Approach (ICD-10-PCS; principal; 2022-03-25)
DX: Z45.89 Encounter for adjustment and management of other implanted devices (principal); Z79.82 Long term (current) use of aspirin; Z79.899 Other long term (current) drug therapy
CPT/HCPCS: 37193; 99152; C1769; C1773; J2001; J2250; J3010; Q9967